=== PATIENT | female | born 1975 | race Caucasian/White ===

== ENCOUNTER 2018-11-17 22:52 | Observation (INO) ==
[2018-11-17] MEDS ORDERED: NITROGLYCERIN SL ONE (23:21)
[2018-11-17] MEDS ORDERED: ASPIRIN PO ONE (23:21)
[2018-11-18 00:01] LABS: BASO# 0.03 X1000 (0.0-0.2); BASO% 0.4 % (0.0-0.8); EOS# 0.14 X1000 (0.0-0.7); HEMATOCRIT 36.4 % (37.0-47.0); HEMOGLOBIN 12.3 g/dL (12.0-16.0); LYMPH# 2.96 X1000 (1.2-3.4); LYMPH% 41.7 % (20.5-51.1); MCH 32.3 PG (27-31); MCHC 33.8 g/dL (33-37); MCV 95.5 FL (81-99); MONO# 0.63 X1000 (0.11-0.59); MONO% 8.9 % (1.7-9.3); NEUT# 3.33 X1000 (1.4-6.5); PLT 330 X1000 (130-400); RBC 3.81 XMIL (4.2-5.4); RDW 13.3 % (11.5-14.5); WBC 7.09 X1000 (4.8-10.8)
--- NOTE | 2018-11-18 00:19 | EKG Report ---
Test Performed on : 11/17/2018 11:45:38 PM Test Reason : cp Blood Pressure : / mmHG Vent. Rate : 094 BPM Atrial Rate : 094 BPM P-R Int : 120 ms QRS Dur : 084 ms QT Int : 400 ms P-R-T Axes : 017 005 -09 degrees QTc Int : 500 ms Normal sinus rhythm. Minimal voltage criteria for LVH, may be normal variant Nonspecific ST and T wave abnormality Abnormal ECG No previous ECGs available Unconfirmed Result
[2018-11-18 00:20] LABS: AGAP 11; ALBUMIN 4.3 g/dL (3.5-5.0); ALKALINE PHOSPHATASE 68 U/L (32-104); BUN 12 mg/dL (8-22); CALCIUM 8.9 mg/dL (8.8-10.2); CHLORIDE 102 mmol/L (98-107); COSMO 278; CREATININE 0.7 mg/dL (0.5-0.9); ESTIMATED GFR > 60; GLUCOSE 109 mg/dL (70-104); GOT 94 U/L (10-30); GPT 53 U/L (10-36); POTASSIUM 4.1 mmol/L (3.5-5.1); SODIUM 139 mmol/L (136-145); TCO2 25 mmol/L (25-35); TOTAL PROTEIN 6.7 g/dL (6.3-8.3)
[2018-11-18 01:52] LABS: BILIRUBIN URINE NEGATIVE (NEGATIVE); BLOOD URINE 1+ (NEGATIVE); GLUCOSE URINE NEGATIVE (NEGATIVE); KETONE URINE TRACE mg/dL (NEGATIVE); LEUKOCYTES URINE TRACE (NEGATIVE); NITRITE URINE NEGATIVE (NEGATIVE); PROTEIN URINE TRACE mg/dL (NEGATIVE); UROBILINOGEN URINE 1 mg/dL
[2018-11-18 01:53] LABS: CLARITY CLEAR (CLEAR); COLOR YELLOW; URINE BACTERIA 2+ /HFP; URINE EPITHELIAL CELLS <10 /HPF (<10); URINE RBC <10 /HPF (<10); URINE SOURCE CLEAN CATCH; URINE WBC <10 /HPF (<10)
[2018-11-18 02:43] LABS: INR 0.85; PROTIME 12.1 Seconds (11.0-16.0)
[2018-11-18] MEDS ORDERED: ZOFRAN IV ONE (04:55)
[2018-11-18] MEDS ORDERED: DEMEROL IV ONE (04:57)
--- NOTE | 2018-11-18 06:17 | PROVIDER DOCUMENTATION ---
This chart was entered by Dorcas Barrow Scribe, acting as scribe for Alex Yip MD. HPI-Chest Pain - General Chief Complaint: Chest Pain Stated Complaint: RETURN/RETREAT Time Seen by Provider: 11/17/18 23:08 Source: patient Allergies/Adverse Reactions: Patient Allergies Allergy/AdvReac Type Severity Reaction Status Date / Time codeine Allergy Mild HEADACHE Verified 12/26/17 14:11 acetaminophen [From NyQuil] Allergy HEADACHE Verified 12/26/17 14:11 dextromethorphan HBr * Allergy HEADACHE Verified 12/26/17 14:11 [From NyQuil] doxylamine succinate * Allergy HEADACHE Verified 12/26/17 14:11 [From NyQuil] pseudoephedrine HCl * Allergy HEADACHE Verified 12/26/17 14:11 [From NyQuil] Home Medications: Home Medication List Medication Instructions Recorded Confirmed Last Taken Type Hydrocodone/APAP 7.5 mg/325 mg 1 each PO DAILY 02/02/14 07/05/17 Unknown History [[place]-7.5] Cyanocobalamin (Vitamin B-12) 1 tab PO DAILY 09/15/14 07/05/17 Unknown History [Cyanocobalamin] Escitalopram Oxalate [Lexapro] 10 mg PO DAILY 09/15/14 07/05/17 Unknown History Norethindrone A-E Estradiol 1 tab PO DAILY 09/15/14 07/05/17 Unknown History [[place]] Omeprazole 1 tab PO DAILY 09/15/14 07/05/17 Unknown History Temazepam 1 tab PO DAILY 09/15/14 07/05/17 Unknown History Promethazine [Phenergan] 1 tab PO Q6H PRN PRN #15 tablet 12/22/14 07/05/17 Unknown Rx Sucralfate [Carafate Liquid] 1 tbs PO Q6HR PRN #8 oz 06/15/16 07/05/17 Unknown Rx Tramadol [Ultram] 50 mg PO Q6H PRN PRN #20 tab 07/05/17 Unknown Rx Meloxicam [Mobic] 7.5 mg PO DAILY PRN PRN #15 tab 12/26/17 Unknown Rx - History of Present Illness-CP Nature of Presenting Problem: pt is a 43 yr old female presenting with complaint of left chest pain that woke her from her sleep tonight. pt reports she has had elevated BP today, went home and went to bed to try to relieve it, pt reports she was asleep when sharp, burning chest pain woke her,pt now reports chest pain, shortness of breath and nausea. pt denies any prior cardiac hx. pt presented earlier today with complaint of elevated BP but LWBS. Location: reports: other (left) Chest Pain Radiation: reports: no radiation Quality of Pain: reports: burning, sharp Severity in ED: moderate Onset/Duration: just prior to arrival Timing: still present Context/Activities at Onset: reports: sleep Modifying Factors: improves with: rest (no improvement) Associated Symptoms: reports: nausea, shortness of breath. denies: back pain, diaphoresis Nitro Today/Relief: no nitro taken today Aspirin Treatment Today: no aspirin today Prior Chest Pain/Cardiac Workup: reports: no prior chest pain Similar Symptoms Previously?: No Recently Seen Here or By Another Healthcare Provider: No Review of Systems - Adult - REVIEW OF SYSTEMS - ADULT Constitutional: denies: fever, fatique Eyes: denies: blurred vision, double vision Ears, Nose, Mouth & Throat: reports: no symptoms reported Cardiovascular: reports: chest pain. denies: palpitations, syncope Respiratory: reports: shortness of breath. denies: cough Gastrointestinal: reports: nausea. denies: vomiting Genitourinary: reports: no symptoms reported Musculoskeletal: denies: back pain, neck pain Integumentary: reports: no symptoms reported Neurological: reports: headache/migraines. denies: dizziness/vertigo, syncope Psychiatric: reports: no symptoms reported Endocrine: reports: no symptoms reported Hematologic/Lymphatic: reports: no symptoms reported Allergic/Immunologic: reports: no symptoms reported All Other Systems: Reviewed and Negative Past History - Adult - PAST MEDICAL HISTORY-ADULT Review of Records: reports: Old Records Reviewed, Nursing Assessment Review, Medications Reviewed, Social history reviewed & non-contributory. Major Childhood Illnesses: reports: denies history Cardiovascular: reports: denies history Respiratory: reports: denies history Gastrointestinal: reports: denies history Obstetrical/Gynecological: reports: denies history Genitourinary: reports: denies history Musculoskeletal: reports: arthritis Neurological: reports: headaches/migraines Psychiatric: reports: denies history Endocrine/Immune: reports: denies history Other Conditions: reports: denies history - PRIOR SURGERIES/PROCEDURES Surgical/Procedure History: reports: BTL, cholecystectomy - IMMUNIZATION STATUS Childhood Immunizations: See Nurse Assessment Flu Vaccine: See Nurse Assessment - FAMILY HISTORY Family History: CVA/TIA, HTN - SOCIAL HISTORY Smoking: quit greater than 1 year Substance Use: denies Living Situation: family Physical Exam-General - PHYSICAL EXAM-ADULT Initial Vital Signs Reviewed: Yes - CONSTITUTIONAL General Appearance: alert, no apparent distress, anxious - EYES Eyes: PERRL/EOMI - HEAD, EARS, NOSE, MOUTH & THROAT HENMT: normocephalic/atraumatic, moist mucous membranes, normal ENT inspection - NECK Neck: non-tender, full range of motion, supple, normal inspection - RESPIRATORY Respiratory: chest non-tender, lungs clear, normal breath sounds, no pleuratic c hest pain, no respiratory distress, no accessory muscle use - CARDIOVASCULAR Cardiovascular: normal peripheral pulses, regular rate, rhythm, no edema - GASTROINTESTINAL (ABDOMEN) Abdominal Exam: normal bowel sounds, non tender, soft - LYMPHATIC Lymphatic: no adenopathy - MUSCULOSKELETAL Back Exam: normal inspection, no CVA tenderness, no vertebral tenderness Extremity: normal range of motion, non-tender, normal gait, normal inspection - SKIN Integumentary: normal color, normal turgor, warm/dry - NEUROLOGIC Neurologic: grossly normal - PSYCHIATRIC Psych/Mental Status: anxious, tearful - HEART Score HEART Score: History: Moderately Suspicious HEART Score: ECG: Non-Specific Repolarization Disturbance/LBBB/PM HEART Score: Age: < or = 45 Years HEART Score: Risk Factors for Atherosclerotic Disease: 1 or 2 Risk Factors HEART Score: Troponin: < or = Normal Limit Total HEART Score:: 3 Progress - PLAN OF CARE/RESULTS Progress/Plan/Lab Results: Vital Signs - 8 hr 11/17/18 22:58 Temperature 97.9 F Pulse Rate 89 Respiratory Rate 16 Blood Pressure 164/99 O2 Sat by Pulse Oximetry 97 Laboratory Results - last 24 hr 11/17/18 11/17/18 11/17/18 23:41 23:41 23:41 WBC 7.09 RBC 3.81 L Hgb 12.3 Hct 36.4 L MCV 95.5 MCH 32.3 H MCHC 33.8 RDW Std Deviation 13.3 Plt Count 330 MPV 9.0 Immature Gran % (Auto) 0.0 Neut % (Auto) 47.0 Lymph % (Auto) 41.7 [place] % (Auto) 8.9 Eos % (Auto) 2.0 Baso % (Auto) 0.4 Immature Gran # (Auto) 0.00 Neut # (Auto) 3.33 Lymph # (Auto) 2.96 [place] # (Auto) 0.63 H Eos # (Auto) 0.14 Baso # (Auto) 0.03 PT INR PTT (Actin FS) Sodium 139 Potassium 4.1 Chloride 102 Carbon Dioxide 25 Anion Gap 11 BUN 12 Creatinine 0.7 Estimated GFR/1.73 m2 > 60 BUN/Creatinine Ratio 17 Glucose 109 H Calculated Osmolality 278 Calcium 8.9 Total Bilirubin 0.30 AST 94 H ALT 53 H Alkaline Phosphatase 68 Creatine Kinase Troponin T < 0.010 Total Protein 6.7 Albumin 4.3 Globulin 2.0 Albumin/Globulin Ratio 2.0 Urine Source Urine Color Urine Clarity Urine pH Ur Specific [place] Urine Protein Urine Ketones Urine Blood Urine Nitrite Urine Bilirubin Urine Urobilinogen Urine Microscopic RBC Urine WBC Urine Microscopic WBC Ur Epithelial Cells Urine Bacteria Urine Glucose 11/18/18 11/18/18 11/18/18 00:46 00:59 00:59 WBC RBC Hgb Hct MCV MCH MCHC RDW Std Deviation Plt Count MPV Immature Gran % (Auto) Neut % (Auto) Lymph % (Auto) [place] % (Auto) Eos % (Auto) Baso % (Auto) Immature Gran # (Auto) Neut # (Auto) Lymph # (Auto) [place] # (Auto) Eos # (Auto) Baso # (Auto) PT 12.1 INR 0.85 PTT (Actin FS) 29.0 Sodium Potassium Chloride Carbon Dioxide Anion Gap BUN Creatinine Estimated GFR/1.73 m2 BUN/Creatinine Ratio Glucose Calculated Osmolality Calcium Total Bilirubin AST ALT Alkaline Phosphatase Creatine Kinase 84 Troponin T Total Protein Albumin Globulin Albumin/Globulin Ratio Urine Source CLEAN CATCH Urine Color YELLOW Urine Clarity CLEAR Urine pH 5.0 Ur Specific [place] 1.020 Urine Protein TRACE A Urine Ketones TRACE Urine Blood 1+ A Urine Nitrite NEGATIVE Urine Bilirubin NEGATIVE Urine Urobilinogen 1 Urine Microscopic RBC <10 Urine WBC TRACE A Urine Microscopic WBC <10 Ur Epithelial Cells <10 Urine Bacteria 2+ Urine Glucose NEGATIVE Orders Category Date Time Status Nursing- Obtain EKG ONCE Care 11/17/18 23:10 Active CHEST-1 VIEW [RAD] Stat Exams 11/17/18 23:10 Taken CBC WITH ELECTRONIC DIFF [HEME] Stat Lab 11/17/18 23:41 Completed CK PROFILE [SP CHEM] Stat Lab 11/18/18 00:59 Completed COMPREHENSIVE METABOLIC PANEL [CHEM] Stat Lab 11/17/18 23:41 Completed PROTIME WITH INR [COAG] Stat Lab 11/18/18 00:59 Completed PTT [COAG] Stat Lab 11/18/18 00:59 Completed TROPONIN T Stat Lab 11/17/18 23:41 Completed TROPONIN T Stat Lab 11/18/18 02:[address] W/POSS RFLX CULT [URINALYSIS] Stat Lab 11/18/18 00:46 Completed URINE CULTURE [RM] Routine Lab 11/18/18 01:53 Ordered Aspirin Med 11/17/18 23:21 Discontinued 325 mg PO NOW ONE Meperidine [Demerol] Med 11/18/18 04:57 Discontinued 25 mg IV NOW ONE Nitroglycerin Sl [Nitroglycerin] Med 11/17/18 23:21 Discontinued 0.4 mg SL NOW ONE Ondansetron [Zofran] Med 11/18/18 04:55 Discontinued 4 mg IV NOW ONE EKG [EKG] Stat Ther 11/17/18 23:10 Draft Result Diagrams: 11/17/18 23:41 11/17/18 23:41 - EKG 1 Time of EKG reading by physician:: 23:45 EKG Read and Signed by:: Alex Yip EKG Interpretation (*Must complete 3 of following elements*): Abnormal (non specific st and t wave abnormality) Rate: 94 Rhythm: nsr QRS: LVH (minimal voltage criteria-may be normal variant) HI Interval: normal ST Wave: non-specific ST changes - XRAY 1 XRAY Study: Chest Impression: Normal, See EMR Report - CONSULTS/PCP/HOSPITALIST Notification #1 *Consult/PCP/Hospitalist*: Dr Lares Time Discussed: 05:50 Consult Disposition: Admit Departure - Departure Date of Disposition Decision: 11/18/18 Time of Disposition Decision: 06:16 DIAGNOSIS: Chest pain Disposition: ADMITTED INPATIENT 09 Certified Medical Emergency: Emergent Condition: Fair Referrals and Follow-Ups: Meeta Stockton CRNP [Primary Care Provider] - - Critical Care Note This patient required my direct & personal management of CC.: No Attestation - Physician/ TERESA Attestation Patient care was provided by Advanced Practice Provider:: No The physician spent face to face time with patient:: Yes Advanced Practice Provider documentation review:: Supervising physician onsite and consulted in the evaluation and care of this patient. The physician did have a face to face encounter with the patient. This chart was documented by the indicated scribe, (Dorcas Barrow, Luan) and accurately reflects the services I performed and decisions made by me, Alex Yip MD, as attested by the provider's signature.
[2018-11-18] MEDS ORDERED: ZOFRAN ODT PO PRN (06:18)
[2018-11-18] MEDS ORDERED: NITROGLYCERIN SL PRN (06:20)
[2018-11-18] MEDS ORDERED: ASPIRIN PO ONE (06:20)
[2018-11-18] MEDS ORDERED: DEMEROL IV PRN (06:20)
[2018-11-18 07:49] VITALS: BP 121/78
--- NOTE | 2018-11-18 08:02 | Diag Imaging Result Doc PS360 ---
EXAM: CHEST-1 VIEW - 11/17/2018 HISTORY: cp TECHNIQUE: Portable chest one view COMPARISON: 07/05/2017 FINDINGS: Heart size appears normal. There is mild tortuosity of the thoracic aorta similar to prior. The lungs appear clear. There is no pleural effusion or pneumothorax identified. IMPRESSION: No evidence of acute disease. Electronically signed by BradyArcSighteunice 11/18/2018 8:00 AM
[2018-11-18] MEDS ORDERED: MORPHINE IV PRN (09:18)
[2018-11-18] MEDS ORDERED: ZOFRAN IV PRN (09:20)
[2018-11-18] MEDS ORDERED: SALINE LOCK IV FLUID XX ONE (09:20)
[2018-11-18] MEDS ORDERED: TYLENOL PO PRN (09:20)
[2018-11-18] MEDS ORDERED: LOVENOX SUBQ SCH (09:30)
[2018-11-18 09:47] LABS: UR AMPHETAMINES QUAL NONE DETECTED (NONE DETECT); UR BARBITUATES QUAL NONE DETECTED (NONE DETECT); UR BENZODIAZEPIN QUAL NONE DETECTED (NONE DETECT); UR CANNABINOIDS QUAL NONE DETECTED (NONE DETECT); UR COCAINE QUAL NONE DETECTED (NONE DETECT); UR METHADONE QUAL NONE DETECTED (NONE DETECT); UR METHAMPHETAMINE QUAL NONE DETECTED (NONE DETECT); UR OPIATES QUAL NONE DETECTED (NONE DETECT); UR OXYCODONE QUAL PRESUMPTIVE POSITIVE (NONE DETECT); UR PCP QUAL NONE DETECTED (NONE DETECT); UR PROPOXYPHENE QUAL NONE DETECTED (NONE DETECT); UR TCA QUAL NONE DETECTED (NONE DETECT)
[2018-11-18 10:21] LABS: HEMOGLOBIN A1C 5.1 % (4.8-6.0)
[2018-11-18 10:39] LABS: FREE T4 1.28 ng/dL (0.93-1.70); TSH 2.4 uIUmL (0.27-4.20)
[2018-11-18] MEDS ORDERED: PERCOCET-5 PO PRN (11:34)
[2018-11-18] MEDS ORDERED: CYMBALTA PO SCH (11:45)
[2018-11-18] MEDS ORDERED: PEPCID PO SCH (11:45)
[2018-11-18 11:48] LABS: AMYLASE 26 U/L (20-200); LIPASE 25 U/L (13-60)
[2018-11-18] MEDS: IMITREX PO PRN ×2 (13:01→15:11)
[2018-11-18] MEDS ORDERED: LEXISCAN ONE (15:19)
[2018-11-18] MEDS ORDERED: REGLAN IV ONE (17:07)
[2018-11-18] MEDS ORDERED: BENADRYL IV ONE (17:07)
[2018-11-18] MEDS ORDERED: TORADOL IV ONE (17:08)
--- NOTE | 2018-11-18 19:32 | HISTORY AND PHYSICAL ---
HISTORY OF PRESENT ILLNESS: The patient presented with chest pain. She has a history of migraines. No significant cardiac history previously. She had left-sided chest pain, elevated blood pressure. She went home. It persisted. She came in for evaluation. She had chest pain, dyspnea, and nausea. Family history of CVA. No known history otherwise. Her heart score was felt to be 3, so she was placed in observation for chest pain. Her physical exam was relatively unremarkable. She will placed in OBS, echo, stress test and follow. This is a [id number] encounter note with MIGUELITO Koenig. If workup is negative, anticipate discharge home within next 12-24 hours. cc: Huan Lares MD
--- NOTE | 2018-11-18 19:59 | GRADED EXERCISE REPORT ---
DATE: 11/18/2018 ORDERING PHYSICIAN: Dr. Yip. INDICATION: Chest pain. FINDINGS: Baseline EKG shows nonspecific, but she had some T-wave depression in V3 and V4. Questionable Q waves inferiorly and in lateral leads. She did develop chest pain after administration of 0.4 mg of Lexiscan. She I felt had ST changes in III, depression in V3 and V4. She actually had T-wave inversion in V2, which she did not have, which actually normalized at the end of the tests. She had some dynamic ST changes, but technically it did not qualify as a greater than 1 mm change. CONCLUSION: Test was felt to be clinically positive and electrically equivocal, although there is suspicion of anterior ischemia based on her electrocardiogram changes. cc: Huan Lares MD
[2018-11-18] MEDS ORDERED: TRICOR PO SCH (21:00)
[2018-11-18] MEDS ORDERED: MIRAPEX PO SCH (21:00)
[2018-11-18] MEDS ORDERED: MOTRIN PO SCH (21:00)
--- NOTE | 2018-11-19 03:32 | HISTORY AND PHYSICAL ---
PRIMARY CARE PROVIDER: MIGUELITO Mireles. CHIEF COMPLAINT: Chest pain, headache. HISTORY OF PRESENT ILLNESS: Ms. Altagracia Fonseca is a 43-year-old female with a medical history of morbid obesity, anxiety, depression, GERD, arthritis, migraines, thoracolumbar degenerative disk disease and restless leg syndrome, who states that yesterday afternoon she started having chest pain. It was a sudden onset. She was not in any type of activity. She was sitting on the couch watching TV. This pain did not necessarily radiate anywhere, but it caused shortness of breath, nausea and a significant acid taste in her mouth. She felt dizzy, clammy, lightheaded and once she got to the ER she was given aspirin and nitroglycerin. She said once she took the nitroglycerin she did feel much better, but it gave her a migraine so she has had a migraine since she received that. She was assessed during her stress test in which once she received the medication for the stress test she did develop chest pain once again with worsening headache. Lab work reveals that she is negative for diabetes, but positive for hypertriglyceridemia and hypercholesterolemia for which we will treat her for. Cardiac enzymes are negative so far. EKG did not have any ST elevation so it could possibly be a severe case of GERD. We will continue to follow up on final diagnosis on her stress test. PAST MEDICAL HISTORY: 1. Morbid obesity with a BMI of 34.8. 2. Arthritis. 3. Migraines. 4. Thoracolumbar degenerative disk disease specifically in the L3-L4. 5. Restless leg syndrome. 6. Anxiety/depression. 7. GERD. SURGICAL HISTORY: 1. Bilateral tubal ligation. 2. Cholecystectomy. 3. Neck surgery. SOCIAL HISTORY: Quit smoking 10 years ago. Was a 1 pack per day smoker for at least 15 years. Drinks alcohol about once or twice a month. . 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 FAMILY HISTORY: There is reported in her mother's side of the family atrial fibrillation with stroke. Her father, hypertension, and her paternal grandfather had brain tumor. ALLERGIES: Codeine causes nausea, vomiting. Also allergic to NyQuil, causes headache which includes dextromethorphan, doxylamine and pseudoephedrine. HOME MEDICATIONS: 1. Norephedrine. 2. Estradiol. 3. Iron 1 tablet p.o. daily. 4. Duloxetine HCl 30 mg p.o. daily. 5. Pepcid 40 mg p.o. daily. 6. Hydroxyzine 25 mg p.o. nightly p.r.n. 7. Ibuprofen 800 mg p.o. twice daily. 8. Losartan potassium 25 mg p.o. daily. 9. Percocet 5 one tablet p.o. 3 times a day p.r.n. 10.Pramipexole 1.5 mg p.o. nightly. 11.Imitrex 100 mg p.o. p.r.n. 12.Tylenol 500 mg p.o. p.r.n. 13.Vitamin D2 of 50,000 units p.o. weekly. REVIEW OF SYSTEMS: Fourteen-point review of systems are complete and all were negative except for those mentioned above in HPI. PHYSICAL EXAMINATION: VITAL SIGNS: Temperature 97.9, heart rate 88, respiratory rate 18, blood pressure 121/78, O2 saturation 98% on room air. GENERAL: Ms. Altagracia Fonseca is a 43-year-old female. She is in no acute distress. She is able to answer questions appropriately. HEENT: Atraumatic, normocephalic. Pupils equal, round, reactive to light. Extraocular movements intact. Mucous membranes are moist. NECK: Trachea midline. CARDIOVASCULAR: S1, S2. Regular rate and rhythm. No rubs, gallops, murmurs. No lower extremity edema. Plus-2 dorsalis and radial pulses. Negative JVD or carotid bruits. PULMONARY: Clear to auscultate. Bilateral breath sounds. No accessory muscle use or work of breathing noted. GASTROINTESTINAL: Soft, nontender, nondistended, positive bowel sounds times 4. EXTREMITIES: Moves all extremities equally with full range of motion. NEUROLOGIC: A and O times 3. Follows commands. Sensory is intact. SKIN: Warm, dry, intact. LABORATORY DATA: White blood cells 7000. Hemoglobin 12. Hematocrit 36. Platelet count 330. INR 0.85. PTT is 29. Sodium 139. Potassium 4.1. BUN 12. Creatinine 0.7. Glucose 109. Hemoglobin A1c 5.1. Calcium 8.9. Magnesium 1.7. Bilirubin 0.30. AST 94. ALT 53. CK 84. Troponin less than 0.01. ProBNP 113. Albumin is 4.3. Triglycerides 322. Total cholesterol 243. LDL 153. HDL 44. Amylase 26. Lipase 25. TSH 2.40. Free T4 is 1.28. Urinalysis: Trace protein, 1-plus blood, trace white blood cells, 2-plus bacteria. Urine drug screen positive for oxycodone. She has that as a home medication, otherwise negative. IMAGING: Chest x-ray: No evidence of acute disease. EKG: Normal sinus rhythm, rate 94, QTc is 500. She had her stress test performed. Full results are not available. She did have chest pain during the medication administration. ASSESSMENT AND PLAN: 1. Atypical chest pain. Could be GERD. She did have an acid reflux into her mouth or sour acid taste in her mouth, but it did positively stop pain once she took the nitroglycerin. Her cholesterol level and her triglyceride levels are high. She is negative for diabetes. She is obese. There is no significant family history for heart disease other than grandparents. Her mother did have a stroke and she is not a smoker so we will have to see what the rest of the stress test reveals. 2. Hypertriglyceridemia, hyperlipidemia. We will start her on fenofibrate. May need to start her on a statin as well. 3. Migraine headaches. Imitrex resumed. 4. Arthritis. Tylenol and Percocet. 5. Anxiety and depression. Home medications were resumed. 6. Restless leg syndrome. Home medication resumed. 7. Morbid obesity. Diet and exercise will be discussed. 8. Deep venous thrombosis prophylaxis. Lovenox. Dictated by MIGUELITO Koenig for Huan Lares MD cc: MIGUELITO Koenig MD
[2018-11-19] MEDS ORDERED: PRILOSEC PO SCH ×2 (07:00)
[2018-11-19] MEDS ORDERED: ASPIRIN PO SCH ×2 (09:00)
[2018-11-19] MEDS ORDERED: PATIENT'S OWN MED PO SCH (09:00)
[2018-11-19] MEDS ORDERED: COZAAR PO SCH (09:00)
--- NOTE | 2018-11-19 17:08 | DISCHARGE SUMMARY ---
ADMISSION DATE: 11/18/2018 DISCHARGE DATE: 11/18/2018 DISCHARGE DIAGNOSES: 1. Atypical chest pain. 2. Accelerated hypertension, although her blood pressure now looks okay. 3. Migraines. 4. Gastroesophageal reflux disease, possible gastritis. HOSPITAL COURSE: Briefly, this is a 43-year-old female. She came in with chest pain awakening her from sleep. Please see full H and P. Workup in the ER was unremarkable. Heart score is around 3. She was placed in observation for chest pain. She had serial cardiac enzymes. They were negative. Stress test, which I have discussed with doctor. They have issues. In any case, she is doing okay. Her stress test did not show anything acute. No reversible ischemia. She was felt stable for discharge. She did have a migraine for which we initially gave her some sumatriptan, Reglan, Benadryl, and some Toradol. Recommend follow up with GI for endoscopy. I put her on Prilosec. Because of her hypertriglyceridemia, we placed her on Tricor. DISCHARGE MEDICATIONS: Estradiol, vitamin B12 injections weekly, Cymbalta 30, Pepcid 40 daily, hydroxyzine 25 p.r.n., losartan 25 daily, Percocet 1 t.i.d. p.r.n. pain, pramipexole 1.5 at bedtime, sumatriptan as needed, Tylenol as needed, vitamin D2 one capsule weekly, cetirizine 5 daily, Tricor 145 daily, Prilosec 40 daily. Her blood pressure is not particularly elevated. I do not think there is an absolute need for a secondary hypertension workup. When she came in, it was 164/69 but she was having pain so I am not that convinced about that. She is supposed to follow up with her PCP, who is Meeta Stockton. She will see tomorrow and we will set her up with GI for a followup, either Dr. Michael or Dr. Pillai. cc: Huan Lares MD
== END 2018-11-18 18:00 | disposition home or self-care (01) | DRG 313 ==
LOC: P.ED 22:52 → P.MEDSURG 11-18 07:29 → INTOOBSV 11-18 07:29
PROVIDERS: ADMIT Internal Medicine
CPT/HCPCS: 71010; 71045; 78452; 80053; 80061; 80104; 80301; 80305; 81001; 82150; 82550; 83036; 83690; 83721; 83735; 83880; 84439; 84443; 84484; 85025; 85610; 85730; 86140; 87088; 93005; 93017; 93306; 94761; A9270; A9500; G0431; G0434; G0477; J1200; J1650; J1885; J2175; J2405; J2765; J2785